=== PATIENT | male | born 1995 | race Caucasian/White ===

== ENCOUNTER 2018-11-26 00:50 | Emergency (ER) | payer OTHER ==
--- NOTE | 2018-11-26 01:08 | ED Physician Documentation ---
PD HPI UPPER EXT INJURY - Stated complaint Stated Complaint: WRIST PX - Chief complaint Chief Complaint: Ext Problem - History obtained from History obtained from: Patient - History of Present Illness Location: Right, Wrist Type of injury: Twist, Blunt / blow (he was replacing justin and using tool with pushing repetitively and having some impact to the handle as hit nails/etc in the justin. Onset of pain during the day, and has increased and persisted since.) Where injury occurred: Home Timing - onset: How many days ago (2) Timing - duration: Days (2) Timing - details: Abrupt onset, Still present Worsened by: Moving, Palpating Associated symptoms: Swelling. No: Weakness, Numbness Similar symptoms before: Has not had sx before Review of Systems Skin: denies: Abrasion (s), Laceration (s) Neurologic: denies: Focal weakness, Numbness PD PAST MEDICAL HISTORY - Past Medical History Past Medical History: No Cardiovascular: None Respiratory: None Neuro: None Endocrine/Autoimmune: None GI: None : None HEENT: None Psych: None Musculoskeletal: None Derm: None - Past Surgical History Past Surgical History: No - Present Medications Home Medications: Ambulatory Orders Medication Instructions Recorded Confirmed Naproxen 500 mg PO BID #20 tablet 11/26/18 - Allergies Allergies/Adverse Reactions: Allergies Allergy/AdvReac Type Severity Reaction Status Date / Time No Known Drug Allergies Allergy Verified 11/26/18 01:03 - Social History Does the pt smoke?: No Smoking Status: Never smoker Does the pt drink ETOH?: No Does the pt have substance abuse?: No - Immunizations Immunizations are current?: No - POLST Patient has POLST: No PD ED PE NORMAL - Vitals Vital signs reviewed: Yes - General General: Alert and oriented X 3, No acute distress, Well developed/nourished - Derm Derm: Normal color, Warm and dry - Extremities Extremities: Other (The right wrist has tenderness mostly over the dorsal radial aspect of the proximal wrist. There is slight tenderness along the base of the thumb but not particularly in the extensor pollicis longus. There is no obvious deformity. The palmar side is not tender. There is good color and capillary refill in the fingers. Normal sensation in the fingers as well.) - Neuro Neuro: Alert and oriented X 3, No motor deficit, No sensory deficit Results - Vitals Vitals: Oxygen O2 Source Room air - Rads (name of study) right wrist Radiology: Prelim report reviewed, See rad report (no fractures) PD MEDICAL DECISION MAKING - ED course Complexity details: considered differential (sprain of wrist; no fracture. Has some pain to base of thumb, so can use thumb spica/wrist splint. ), d/w patient Departure - Departure Disposition: 01 Home, Self Care Clinical Impression: Sprain of right wrist Qualifiers: Encounter type: initial encounter Qualified Code(s): S63.501A - Unspecified sprain of right wrist, initial encounter Condition: Stable Record reviewed to determine appropriate education?: Yes Instructions: ED Sprain Wrist Follow-Up: ANNY Al [Provider Group] Prescriptions: Naproxen 500 mg PO BID #20 tablet Comments: Use the wrist splint when active to protect motion of the wrist. You can have it off when rested. Use some anti-inflammatories such as naproxen twice daily for the next 7 to 10 days. Add Tylenol if needed for pain. Your x-ray appears normal. Presume this is a sprain of the tendons and ligaments. It should improve over the next several days to week back to normal use and activity. Use the wrist splint for several days at least even up to a week and discontinue use when your wrist is feeling better enough. Follow-up with your primary care if not better over a week or so Discharge Date/Time: 11/26/18 02:44
[2018-11-26] MEDS ORDERED: IBUPROFEN 600 MG TABLET PO STA (01:21)
--- NOTE | 2018-11-26 02:05 | XRAY Report ---
Reason: wrist injury few days ago Procedure Date: 11/26/2018 Accession Number: [id number] / [id number] Procedure: XR - Wrist 4 View RT CPT Code: FULL RESULT: EXAM: RIGHT WRIST RADIOGRAPHY EXAM DATE: 11/26/2018 01:36 AM. CLINICAL HISTORY: Wrist injury few days ago. COMPARISON: None. TECHNIQUE: 4 views. FINDINGS: Bones: Normal. No fractures or bone lesions. Joints: Normal. No subluxations. Soft Tissues: Normal. No soft tissue swelling. IMPRESSION: Normal wrist radiography. [facility]
[2018-11-26 02:34] VITALS: BP 118/74
== END 2018-11-26 02:44 | disposition home or self-care (01) ==
LOC: ED 00:50
DX: S63.501A Unspecified sprain of right wrist, initial encounter (principal); X50.3XXA Overexertion from repetitive movements, initial encounter; Y93.H3 Activity, building and construction; Y92.009 Unspecified place in unspecified non-institutional (private) residence as the place of occurrence of the external cause
CPT/HCPCS: 73110; 99283; A9270

== ENCOUNTER 2022-06-05 08:49 | Outpatient (CLI) | payer OTHER ==
[2022-06-05 09:26] VITALS: BP 128/60
--- NOTE | 2022-06-05 09:26 | SLEEP CARE CONSULTATION ---
Information from patient questionnaire entered by Stacey Lainez. I have reviewed and concur with the information entered by Stacey Lainez. This document represents the service I personally performed and the decisions made by me, Lexie Moya ARNP. History of Present Illness Service Date and Time: 06/05/2022 0849 Reason for Visit: New patient Chief Complaint: reports: Observed pauses in breathing, Fatigue Date of Onset: 6-8MONTHS Usual bedtime: 930PM Time it takes to fall asleep: 1-4HRS Snores at night: Yes Observed to quit breathing while asleep: Yes Sleeps alone due to snoring: No Number of times waking at night: 1 Reasons for waking at night: reports: Gasping for air (randomly, sit up gasping ("scared" with heart racing)). denies: Choking, Snoring Toss, Turn, or Twitch while sleeping: Yes Recalls having dreams: Yes Usually gets out of bed at: 0530; weekends [id number] Feels refreshed in the morning: No Morning headache: No Sleepy or fatigued during the day: Yes Ever fallen asleep while driving: No Takes day naps: No Dreams during day naps: Yes Prior sleep studies: No Additional HPI information: I had the pleasure of seeing MOR JIMENEZ today regarding the possibility of him having a sleep disorder. His current complaints are fatigue, observed pauses in breathing and snoring. He states he was in for a physical and they recommended he be seen here. He states his ex told him he snored and that he would stop breathing at night. 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 Patient is and lives in . Have you smoked in the past 12 months: No Alcohol use: Yes Alcohol amount and frequency: 4-6 EVERY TWO WEEKS Caffeine use: Yes Caffeine amount and frequency: 1 EVERYDAY Family History Family history of sleep disordered breathing: No Allergies and Home Medications Known drug allergies: No Drug allergies reviewed: Yes Home medication list reviewed: Yes (no daily medications) Allergy and home medication list: Allergies No Known Drug Allergies Allergy (Verified 06/04/22 14:17) Review of Systems Weight loss over past 5 years: 20- in last year Cardiovascular: denies: high blood pressure Respiratory: denies: shortness of breath Gastrointestinal: denies: heartburn Neurological: denies: headaches, seizure, head trauma Psychiatric: reports: anxiety, depression Ear/Nose/Throat: reports: wisdom teeth removed. denies: tonsillectomy Endocrine: denies: thyroid disease Immunologic: reports: allergies to food or environment (some seasonal, intermittently) Physical Exam Vital signs obtained and entered by: STACEY Anderson MA Blood Pressure: 128/60 (LEFT ARM) Cuff size: regular Heart Rate: 55 O2 Saturation: 99 Height: 5 ft 9 in Weight: 187 lb 3.2 oz Body Mass Index: 27.6 BMI Classification: Overweight Neck circumference: 16 Mouth and throat: normal Soft palate: normal Hard palate: normal Uvula: long Uvula visualization: 50% Mallampati Class II Tongue: enlarged in size with teeth tidwell on lateral edges Tonsils: 2+ Neck: normal w/o lymphadenopathy or thyromegaly Heart: regular rate and rhythm Lungs: clear bilaterally Impression and Plan 1. Suspected Obstructive Sleep Apnea-Hypopnea Syndrome, as suggested by a history of loud and irregular snoring, observed cessation of breath while asleep, gasping or choking in sleep, unrefreshed sleep and cognitive impairment. Narrow oropharynx and obesity are common predisposing factors for obstructive sleep apnea-hypopnea syndrome. I recommend proceeding to polysomnography to confirm the diagnosis and to assess severity. If the patient has significant sleep disordered breathing, a manual CPAP titration study will also be performed to find the optimal treatment pressure. I informed the patient of what the sleep studies involve and after some discussion, obtained agreement to proceed. The pathophysiology of obstructive sleep apnea-hypopnea syndrome was discussed with the patient and health risks of cardiovascular and cerebrovascular disease if not treated. Risks of drowsy driving discussed in detail and patient advised to avoid long distance driving and to pulling unit operator at the first sign of drowsiness. Patient agreed to plan. * Schedule polysomnography +- manual CPAP titration study and return in 1-2 weeks after the study to discuss result and initiate therapy. * Avoid long distance driving or driving when feeling sleepy. * Avoid alcohol, sedative and muscle relaxant around bedtime. * Attempt to lose weight. * Review instructions provided by trained office staff on how to prepare for the sleep study. * Return for follow-up after sleep study completed. Counseling Topics: Weight loss health impact Visit Type: In Office Time Spent with Patient (minutes): 24 Provider Statement: I spent 100% of the Face to Face Visit with the patient with greater than 50% spent counseling the patient and coordination of care.
== END 2022-06-05 08:50 | disposition home or self-care (01) ==
LOC: SC 08:49
PROVIDERS: ATTEND Nurse Practitioner Family
DX: R06.83 Snoring (principal); G47.8 Other sleep disorders; R06.81 Apnea, not elsewhere classified; R53.83 Other fatigue; F32.A Depression, unspecified; E66.3 Overweight; Z68.27 Body mass index [BMI] 27.0-27.9, adult
CPT/HCPCS: 99202; 99212

== ENCOUNTER 2022-08-13 09:05 | Outpatient (CLI) | payer OTHER | END 2022-08-13 09:06 | disposition home or self-care (01) | LOC: SC 09:05 | PROVIDERS: ATTEND Nurse Practitioner Family | DX: R06.83 Snoring (principal); G47.8 Other sleep disorders; R06.81 Apnea, not elsewhere classified; R53.83 Other fatigue; F32.A Depression, unspecified | CPT/HCPCS: 95806 ==